=== PATIENT | male | born 1990 | race Caucasian/White ===

== ENCOUNTER → 2025-04-16 | Outpatient (CLI) | payer MEDICARE, OTHER ==
[2025-04-16 19:34] LABS: Cholesterol 191.00 mg/dL (0.00-200.00); HDL Cholesterol 46.70 mg/dL (40.00-60.00); LDL Cholesterol,Calculated 124.9 mg/dL (0.0-131.0); Triglycerides 97.00 mg/dL (0.00-149.00); VLDL Calculation 19.40 mg/dL (5.00-40.00)
== END | disposition home or self-care (01) ==
LOC: LABWHC1 13:30
PROVIDERS: ATTEND Student in an Organized Health Care Education/Training Program
DX: E11.65 Type 2 diabetes mellitus with hyperglycemia (principal); E78.2 Mixed hyperlipidemia
CPT/HCPCS: 36415; 80061; 83036